=== PATIENT | female | born 1995 | race African-American/Black ===

== ENCOUNTER 2018-05-26 16:52 | Emergency (ER) | payer OTHER ==
[~2018-05-26] VITALS: Ht 154.9 cm; Wt 61.2 kg
[2018-05-26] MEDS ORDERED: NKM (17:03)
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
[2018-05-26 17:51] VITALS: BP 114/77
--- NOTE | 2018-05-26 18:08 | Diagnostic Imaging Report ---
EXAM: XR Thoracic Spine, 4 or More Views CLINICAL HISTORY: PAIN TECHNIQUE: Frontal, lateral and oblique views of the thoracic spine. COMPARISON: No relevant prior studies available. FINDINGS: Vertebrae: No acute fracture or malalignment. Mild dextroscoliosis of the thoracic spine centered at T7. Disc spaces: No acute findings. No significant narrowing. Soft tissues: Unremarkable. IMPRESSION: Mild scoliosis. No acute osseous abnormality.
[2018-05-26] MEDS ORDERED: ROBAXIN-750750 MG PO (18:22)
[2018-05-26] MEDS ORDERED: LIDODERM700 M1 TOPIC (18:22)
[2018-05-26] MEDS ORDERED: IBUPROFEN600 MG ORAL (18:22)
[2018-05-26 18:28] VITALS: BP 114/77
--- NOTE | 2018-05-26 18:29 | NUR ---
ED Nurse Note:pt. was cleared for d/c by ER provider ,she recieved d/c instructions with prescription andleft with steady gait
== END 2018-05-26 18:30 | disposition home or self-care (01) ==
LOC: EMR 17:16
DX: M54.6 Pain in thoracic spine (principal); M41.9 Scoliosis, unspecified
CPT/HCPCS: 72070; 99283

== ENCOUNTER 2018-07-10 18:24 | Emergency (ER) | payer MEDICAID, OTHER ==
[~2018-07-10] VITALS: Ht 157.5 cm; Wt 61.2 kg
[~2018-07-10 18:24] MED LIST: IBUPROFEN600 MG ORAL; LIDODERM700 M1 TOPIC; NKM; ROBAXIN-750750 MG PO
[2018-07-10 19:00] VITALS: BP 124/78
--- NOTE | 2018-07-10 19:00 | NUR ---
ED Nurse Note: Received pt and report from day shift, knowing Pt refused urine sample x 2times and ERMD aware. Pt is current having headache.
--- NOTE | 2018-07-10 19:36 | Emergency Room Report ---
History of Present Illness General Chief Complaint: Headache Source: Patient Present Illness HPI 22-year-old female presents to the emergency department complaining of temporary episode of having 5 out of 10 in severity progressive pain behind the left eye with a [place] colored zigzag across her vision that lasted approximately 2-3 minutes and resolved on its own. Patient states that she has had ocular migraines in the past similar symptoms when she was younger however it is been a few years. Patient states that the mother was concerned and wanted her to come in and get checked out just in case. Patient denies recent head trauma or fall denies nausea, vomiting, fevers, chills, neck pain/stiffness , photophobia. Patient reports that she had a progressive onset of her symptoms she denies sudden onset of acute headache. Denies weakness and gross motor movements or paresthesias. Denies having any persistent visual changes. Allergies: Coded Allergies: No Known Allergies (Unverified , 07/10/18) Patient History Past Medical History: see triage record Past Surgical History: none Pertinent Family History: none Last Menstrual Period: CURRENTLY ON Now: No Reviewed Nursing Documentation: PMH: Agreed; PSxH: Agreed Nursing Documentation-PMH Past Medical History: No Stated History Review of Systems All Other Systems: negative except mentioned in HPI Physical Exam Vital Signs Date Time Temp Pulse Resp B/P (MAP) Pulse Ox O2 Delivery O2 Flow Rate FiO2 07/10/18 18:29 98.1 80 16 114/78 99 Room Air Sp02 EP Interpretation: reviewed, normal General Appearance: no apparent distress, alert, GCS 15, non-toxic Head: normocephalic, atraumatic Eyes: bilateral eye normal inspection, bilateral eye PERRL, bilateral eye EOMI , bilateral eye other - no photophobia ENT: hearing grossly normal, normal voice Neck: full range of motion, no meningismus Respiratory: lungs clear, normal breath sounds, speaking full sentences Cardiovascular #1: regular rate, rhythm Musculoskeletal: gait/station normal, normal range of motion Neurologic: alert, oriented x3, responsive, motor strength/tone normal, sensory intact, normal gait, speech normal, no pronator, other - no facial droop , no nystagmus, no motor weakness., grossly normal Psychiatric: judgement/insight normal Skin: normal color, no rash, warm/dry, well hydrated Medical Decision Making PA Attestation Dr. Hubbard is my supervising Physician whom patient management has been discussed with. Diagnostic Impression: Primary Impression: Headache Qualified Codes: R51 - Headache ER Course 22-year-old female presents to the emergency department complaining of temporary episode of having 5 out of 10 in severity progressive pain behind the left eye with a [place] colored zigzag across her vision that lasted approximately 2-3 minutes and resolved on its own. Patient states that she has had ocular migraines in the past similar symptoms when she was younger however it is been a few years. Patient states that the mother was concerned and wanted her to come in and get checked out just in case. Patient denies recent head trauma or fall denies nausea, vomiting, fevers, chills, neck pain/stiffness , photophobia. Patient reports that she had a progressive onset of her symptoms she denies sudden onset of acute headache. Denies weakness and gross motor movements or paresthesias. Denies having any persistent visual changes. Ddx considered but are not limited to migraine, SAH, Pseudomotor Cerebri,, Mass lesion, Cluster MCBRIDE, Tension MCBRIDE, Post lumbar puncture MCBRIDE. Vital signs: are WNL, pt. is afebrile H&PE are most consistent with ocular migraine headache ORDERS: - considered Urine testing but pt. declines insisting that she feels fine and is just here to appease her mother. ED INTERVENTIONS: - none required at this time. DISCHARGE: At this time pt. is stable for d/c to home. Will provide printed patient care instructions, and any necessary prescriptions. Care plan and follow up instructions have been discussed with the patient prior to discharge. Last Vital Signs Date Time Temp Pulse Resp B/P (MAP) Pulse Ox O2 Delivery O2 Flow Rate FiO2 07/10/18 18:29 98.1 80 16 114/78 99 Room Air Status: improved Disposition: HOME, SELF-CARE Condition: Stable Scripts Aspirin/Acetaminophen/Caffeine (EXCEDRIN MIGRAINE GELTAB) 1 Each Tablet 1 EACH PO Q6HR, #30 TAB Prov: Gabrielle Rogers 07/10/18 Patient Instructions: Migraine Headache Additional Instructions: Take medications as directed. Follow up with a Primary Care Provider in 3-5 days For a referral to have NEUROLOGIST Evaluation, even if your symptoms have resolved. --Please review list of primary care clinics, if you do not already have a primary care provider Return sooner to ED if new symptoms occur, or current symptoms become worse. - Please note that this Emergency Department Report was dictated using [employer] technology software, occasionally this can lead to erroneous entry secondary to interpretation by the dictation equipment. Gabrielle Rogers Jul 10, 2018 19:36
[2018-07-10] MEDS ORDERED: EXCEDRIN MIGRA1 EACH PO (19:37)
[2018-07-10 19:55] VITALS: BP 128/76
--- NOTE | 2018-07-10 19:55 | NUR ---
ER DISCHARGE NOTE: Patient is cleared to be discharged per ERMD, pt is aox4, on room air, with stable vital signs. pt was given dc and prescription instructions, pt was able to verbalize understanding, pt id band removed without complications. pt is able to ambulate with steady gait. pt took all belongings.
== END 2018-07-10 19:55 | disposition home or self-care (01) ==
LOC: EMR 19:30
DX: R51 Headache (principal)
CPT/HCPCS: 99281